=== PATIENT | female | born 1980 | race Two or more races ===

== ENCOUNTER 2020-01-12 16:15 | Emergency (ER) | payer OTHER ==
[2020-01-12] MEDS ORDERED: NAPROXEN 250 MG TABLET PO ONE (16:50)
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
[2020-01-12 18:17] VITALS: BP 124/71
== END 2020-01-12 18:17 | disposition home or self-care (01) ==
LOC: ER 16:15
DX: S90.31XA Contusion of right foot, initial encounter (principal); S90.121A Contusion of right lesser toe(s) without damage to nail, initial encounter; S80.01XA Contusion of right knee, initial encounter; S16.1XXA Strain of muscle, fascia and tendon at neck level, initial encounter; M79.671 Pain in right foot; M25.561 Pain in right knee; M54.2 Cervicalgia; M25.511 Pain in right shoulder; M54.5 Low back pain; M79.10 Myalgia, unspecified site; V49.40XA Driver injured in collision with unspecified motor vehicles in traffic accident, initial encounter; Z88.0 Allergy status to penicillin
CPT/HCPCS: 99283